=== PATIENT | female | born 1985 | race Caucasian/White ===

== ENCOUNTER → 2021-11-02 07:30 | Outpatient (CLI) | payer BC, SELFPAY ==
--- NOTE | ~2021-11-02 | US_ITS ---
US abdomen complete DATE: 11/02/2021 08:13 INDICATION: Generalized abdominal pain. Acid reflux. TECHNIQUE: Real-time imaging and Doppler analysis of the abdominal contents COMPARISON: None FINDINGS: The pancreatic tail is obscured by bowel gas. The pancreas, liver and gallbladder are other riggs unremarkable. Normal hepatopedal portal venous flow direction. Negative sonographic Aguilar's sig n. No gallbladder wall thickening. The common bile duct measures 3 mm, normal. Normal caliber of the abdominal aorta. The inferior vena cava is patent. The spleen measures 12.7 cm, within normal range. Right kidney measures 11 cm length, left kidney 11.4 cm. No renal mass lesion or hydronephrosis is de tected. IMPRESSION: No significant abnormality Reviewed, dictated and finalized at [facility]. Reviewed, dictated and finalized at [facility]. IMPRESSION: No significant abnormality
== END ==
PROVIDERS: PCP Family Medicine
DX: R10.9 Unspecified abdominal pain (principal)
CPT/HCPCS: 76700

== ENCOUNTER 2022-03-08 11:07 | Outpatient (CLI) | payer BC, SELFPAY ==
--- NOTE | ~2022-03-08 | XR_ITS ---
EXAM: XR abdomen/kub 1V DATE: 03/08/2022 11:49 HISTORY: LEFT FLANK PAIN . COMPARISON: None available. FINDINGS: Clear lung bases. Normal bowel gas pattern. No organomegaly. Pelvic phleboliths. 2 and 3 m m calcifications project over the left upper pole Regional bones and soft tissues normal for age. IMPRESSION: Possible left nephrolithiasis versus summation artifact. Noncontrast CT of the abdomen an d pelvis would be helpful for more definitive characterization. Reviewed, dictated and finalized at [facility]. IMPRESSION: Possible left nephrolithiasis versus summation artifact. Noncontras t CT of the abdomen and pelvis would be helpful for more definitive characteriz ation.
--- NOTE | ~2022-03-08 | US_ITS ---
EXAMINATION: US renal BI DATE: 03/08/2022 11:51 INDICATION: LEFT FLANK PAIN TECHNIQUE: Multiple grayscale and Doppler ultrasound images of the kidneys were obtained. COMPARISON: 11/02/2021 FINDINGS: The right kidney measures 11.3 x 5.1 x 5.2 cm. The left kidney measures 11.1 x 4.4 x 6.0 cm. The kidn eys demonstrate normal parenchymal echogenicity. There is no hydronephrosis. The bladder is normal. IMPRESSION: Unremarkable renal sonogram findings. Reviewed, dictated and finalized at [facility].
== END 2022-03-08 11:08 | disposition home or self-care (01) ==
PROVIDERS: PCP Family Medicine; Visit Provider Urology
DX: R10.9 Unspecified abdominal pain (principal)
CPT/HCPCS: 74018; 76775